=== PATIENT | male | born 1950 | race Caucasian/White ===

== ENCOUNTER 2019-07-18 13:12 | Emergency (ER) | payer OTHER, SELFPAY ==
[2019-07-18 13:53] VITALS: BP 151/84; PULSE 59; RESP 16; TEMP 36.6; O2SAT 97
--- NOTE | 2019-07-18 17:37 | ED.WOUNDLAC ---
HPI - Wound/Laceration General Chief Complaint: Wound/Laceration <Roxie Turner PA-C - Last Filed: 07/18/19 19:14> Stated Complaint: laceration to right 4th finger <Roxie Turner PA-C - Last Filed: 07/18/19 19:14> Time Seen by Provider: 07/18/19 16:34 <Roxie Turner PA-C - Last Filed: 07/18/19 19:14> Source: patient <Roxie Turner PA-C - Last Filed: 07/18/19 19:14> Mode of arrival: ambulatory <BILL Baeza Last Filed: 07/18/19 19:14> Limitations: no limitations <Roxie Turner PA-C - Last Filed: 07/18/19 19:14> History of Present Illness HPI narrative: Patient presents with chief complaint of laceration to the lateral aspect of his right fourth digit. Patient states he was washing dishes when a glass broke and lacerated his finger just prior to arrival. Patient denies any loss of sensation or loss of range of motion to the digit. Patient states it was bleeding initially but it has stopped since it was cleaned and compressive bandage was applied. Patient states he is up-to-date on his tetanus in the last 5 years. Patient denies any other injuries or concerns. <Roxie Turner PA-C - Last Filed: 07/18/19 19:14> Related Data Allergies/Adverse Reactions: Allergies Allergy/AdvReac Type Severity Reaction Status Date / Time No Known Allergies Allergy Verified 07/18/19 16:33 <Roxie Turner PA-C - Last Filed: 07/18/19 19:14> Review of Systems Review of Systems: Narrative: CONSTITUTIONAL: Denies fever, chills, or sweats. EYES: Denies visual changes, redness, or discharge. ENT: Denies rhinorrhea, congestion, sore throat, or otalgia. CARDIOVASCULAR: Denies chest pain, palpitations, or edema. RESPIRATORY: Denies cough or dyspnea. GASTROINTESTINAL: Denies abdominal pain, nausea, vomiting, or diarrhea. GENITOURINARY: Denies dysuria or hematuria. SKIN: Reports laceration denies rash or itching. MUSCULOSKELETAL: Denies back pain, joint pain, or myalgia. NEUROLOGIC: Denies headache, numbness, dizziness, or weakness. PSYCHIATRIC: Denies anxiety or depression. <Roxie Turner PA-C - Last Filed: 07/18/19 19:14> [facility] Social History Social History: Social History Gender identity (if verbalized by the patient): Male <Roxie Turner PA-C - Last Filed: 07/18/19 19:14> Exam Narrative: Exam Narrative: GENERAL: Well-appearing, well-nourished, and in no acute distress. HEAD: Normocephalic, atraumatic. EYES: PERRLA and EOMI. CHEST: Clear to auscultation. No respiratory distress. No wheezes rales or rhonchi HEART: Regular rate and rhythm. EXTREMITIES: Normal range of motion. No edema. SKIN: L-shaped approximately 1.5 cm laceration noted to the lateral aspect of the right fourth digit. Wound edges are well approximated without any active bleeding. Very superficial. Do not warm, dry, no rash. NEURO: No focal deficits. Alert and oriented x3. PSYCH: Normal mood and affect. <Roxie Turner PA-C - Last Filed: 07/18/19 19:14> Course Vital Signs Vital signs: Vital Signs Temperature 97.9 F 07/18/19 13:53 Pulse Rate 59 L 07/18/19 13:53 Respiratory Rate 16 07/18/19 13:53 Blood Pressure 151/84 H 07/18/19 13:53 Pulse Oximetry 97 07/18/19 13:53 Temperature 98.1 F 07/18/19 18:32 Pulse Rate 80 07/18/19 18:32 Respiratory Rate 20 07/18/19 18:32 Blood Pressure 128/80 07/18/19 18:32 Pulse Oximetry 99 07/18/19 18:32 <Roxie Turner PA-C - Last Filed: 07/18/19 19:14> Vital Signs Temperature 97.9 F 07/18/19 13:53 Pulse Rate 59 L 07/18/19 13:53 Respiratory Rate 16 07/18/19 13:53 Blood Pressure 151/84 H 07/18/19 13:53 Pulse Oximetry 97 07/18/19 13:53 Temperature 98.1 F 07/18/19 18:32 Pulse Rate 80 07/18/19 18:32 Respiratory Rate 20 07/18/19 18:32 Blood Pressure 128/80 07/18/19 18:32 Pulse Oximetry 99 07/18/19 18:32 <Glendy Johns MD - Last Filed: 07/18/19 20:12> Procedures L
[2019-07-18 18:32] VITALS: BP 128/80; PULSE 80; RESP 20; TEMP 36.7; O2SAT 99
== END 2019-07-18 18:33 | disposition home or self-care (01) ==
PROVIDERS: Emergency Provider General Practice
DX: S61.214A Laceration without foreign body of right ring finger without damage to nail, initial encounter (principal); W25.XXXA Contact with sharp glass, initial encounter; Y93.G1 Activity, food preparation and clean up
CPT/HCPCS: 12001; 99282